=== PATIENT | female | born 1970 | race Caucasian/White ===

== ENCOUNTER 2020-03-08 16:55 | Outpatient (CLI) | payer OTHER, SELFPAY ==
--- NOTE | ~2020-03-08 | XR_ITS ---
XR foot RT min 3V 03/08/2020 17:18 INDICATION: Right foot pain PROCEDURE: 4 views right foot COMPARISON: No prior studies for comparison. FINDINGS: Fracture, dislocation or subluxation is not identified. Lisfranc joint intact. The soft tis sues appear within normal limits. No foreign bodies are identified. IMPRESSION: 1: NO ACUTE BONE OR JOINT ABNORMALITY IDENTIFIED. Reviewed, dictated and finalized at location A.
== END 2020-03-08 16:56 | disposition home or self-care (01) ==
LOC: ANHIMG 17:02
PROVIDERS: PCP Physician Assistant; Visit Provider Family Medicine
DX: M79.671 Pain in right foot (principal)
CPT/HCPCS: 73630

== ENCOUNTER → 2022-09-08 10:16 | Outpatient (CLI) | payer BC, SELFPAY ==
--- NOTE | ~2022-09-08 | XR_ITS ---
XR hand LT min 3V DATE: 09/08/2022 10:26 INDICATION: Pain at base of thumb extending into the risk for one month TECHNIQUE: 3 views COMPARISON: None FINDINGS: There is mild osteoarthritis at the first carpometacarpal joint. There is mild osteoarthrit is at some of the interphalangeal joints. No fracture or dislocation, periosteal reaction or bone destruction. No erosive change or chondrocalc inosis. IMPRESSION: Mild osteoarthritis Reviewed, dictated and finalized at location B. IVING AND PROCESSING SUPERVISOR IMPRESSION: Mild osteoarthritis
== END ==
PROVIDERS: PCP Physician Assistant; Visit Provider Physician Assistant
DX: M79.642 Pain in left hand (principal); M19.042 Primary osteoarthritis, left hand
CPT/HCPCS: 73130

== ENCOUNTER 2024-02-09 12:50 | Outpatient (CLI) | payer BC, SELFPAY ==
--- NOTE | ~2024-02-09 | XR_ITS ---
EXAMINATION: XR hand LT 2V DATE: 02/09/2024 13:11 INDICATION: Left hand pain. TECHNIQUE: 2 views of left hand were obtained. COMPARISON: None. FINDINGS: Bone alignment is normal. No fracture. There is mild osteoarthritis of first carpometacarpa l joint and second and third distal interphalangeal joints. There is a 7 mm radiopaque foreign body i n distal second digit. IMPRESSION: 1. 7 mm radiopaque foreign body in distal second digit. Reviewed, dictated and finalized at location A.
--- NOTE | ~2024-02-09 | XR_ITS ---
EXAMINATION: XR finger 2nd LT min 2V DATE: 02/09/2024 13:11 INDICATION: Left hand second digit pain. TECHNIQUE: 3 views of left hand second digit were obtained. COMPARISON: None. FINDINGS: Bone alignment is normal. No fracture. There is mild osteoarthritis of second distal interp halangeal joint. There is a 7 mm radiopaque foreign body in the distal second digit. IMPRESSION: 1. 7 mm radiopaque foreign body in the distal second digit. Reviewed, dictated and finalized at location A.
== END 2024-02-09 12:51 ==
PROVIDERS: Visit Provider Physician Assistant
DX: M79.642 Pain in left hand (principal); M79.5 Residual foreign body in soft tissue
CPT/HCPCS: 73120; 73140

== ENCOUNTER 2024-08-22 11:25 | Outpatient (CLI) | payer BC, SELFPAY ==
--- NOTE | ~2024-08-22 | XR_ITS ---
EXAMINATION: XR hand LT min 3V DATE: 08/22/2024 11:39 INDICATION: Left hand pain. TECHNIQUE: 3 views of left hand were obtained. COMPARISON: Left hand radiographs 02/09/2024 FINDINGS: Alignment is normal. No fracture. There is mild osteoarthritis of first carpometacarpal barbie nt, first interphalangeal joint, and second distal interphalangeal joint. IMPRESSION: 1. Mild polyarticular osteoarthritis. Reviewed, dictated and finalized at location A. MILL OPERATOR
== END 2024-08-22 11:26 | disposition home or self-care (01) ==
PROVIDERS: PCP Physician Assistant; Visit Provider Physician Assistant
DX: M19.042 Primary osteoarthritis, left hand (principal)
CPT/HCPCS: 73130